=== PATIENT | female | born 1940 | race Two or more races ===

== ENCOUNTER 2018-01-13 13:15 | Emergency (ER) | payer OTHER ==
[~2018-01-13] VITALS: Ht 149.9 cm; Wt 59.0 kg
[~2018-01-13 13:15] MED LIST: AMOXICILLIN500 MG; CARAFATE SU1 G/10 ML PO; CIPRO500 MG PO; CLARITHROMYCIN500 MG; DIOVAN160 M1 PO; GEMFIBROZIL600 MG PO; GLIMEPIRIDE4 MG; GLIMEPIRIDE4 MG PO; HYZAAR 100-251 UDTAB; INTESTINEX1 CAP PO; JANUMET 50-1,1 UDTAB; METFORMIN HCL1000 MG PO; METFORMIN HCL500 MG PO; OMEPRAZOLE20 MG; PLAVIX75 MG PO; POLY119PG PO; SURFAK240 M1 PO; TRICOR145 MG PO; TYLENOL-CODEINE1 TAB PO; ZANTAC150 MG PO; ZOCOR40 MG PO
[2018-01-13] MEDS ORDERED: IRBESARTAN-HCT1 EAC1 (13:28)
[2018-01-13] MEDS ORDERED: LIPITOR20 MG (13:28)
[2018-01-13] MEDS ORDERED: FENOFIBRATE48 MG (13:28)
== END 2018-01-13 16:06 | disposition home or self-care (01) ==
LOC: ER 13:15
DX: S61.210A Laceration without foreign body of right index finger without damage to nail, initial encounter (principal); W54.0XXA Bitten by dog, initial encounter; Y93.89 Activity, other specified; Y92.89 Other specified places as the place of occurrence of the external cause; Y99.8 Other external cause status

== ENCOUNTER 2018-05-16 12:14 | Outpatient (CLI) | payer OTHER ==
[~2018-05-16 12:14] MED LIST changes: +FENOFIBRATE48 MG; +IRBESARTAN-HCT1 EAC1; +LEVALBUTER1.25 MG/3 IH; +LIPITOR20 MG; +MEDROLPACK PO; +TESSALON PERLE100 MG PO; +ZITHROMAX500 MG PO
== END 2018-05-16 12:24 | disposition home or self-care (01) ==
LOC: RAD 12:14
DX: J44.1 Chronic obstructive pulmonary disease with (acute) exacerbation (principal); R10.84 Generalized abdominal pain

== ENCOUNTER → 2018-09-10 11:42 | Outpatient (CLI) | payer OTHER | END | disposition home or self-care (01) | LOC: LAB 11:42 | DX: N39.0 Urinary tract infection, site not specified (principal); R82.79 Other abnormal findings on microbiological examination of urine ==

== ENCOUNTER 2018-09-25 08:03 | Outpatient (CLI) | payer OTHER | END 2018-09-25 08:25 | disposition home or self-care (01) | LOC: NUCLEAR 08:03 | DX: I20.1 Angina pectoris with documented spasm (principal); R07.89 Other chest pain | CPT/HCPCS: 78452; 93017; A9500; J0153 ==

== ENCOUNTER → 2019-04-03 | Outpatient (CLI) | payer OTHER | END | disposition home or self-care (01) | LOC: SONOGRAMA 11:59 | DX: R10.84 Generalized abdominal pain (principal); N18.3 Chronic kidney disease, stage 3 (moderate); R31.29 Other microscopic hematuria ==

== ENCOUNTER 2019-11-27 12:56 | Outpatient (CLI) | payer OTHER | END 2019-11-27 13:00 | disposition home or self-care (01) | LOC: SONOGRAMA 12:56 | DX: E04.1 Nontoxic single thyroid nodule (principal) ==

== ENCOUNTER 2020-08-31 08:53 | Outpatient (CLI) | payer OTHER | END 2020-08-31 09:01 | disposition home or self-care (01) | LOC: SONOGRAMA 08:53 | PROVIDERS: ATTEND Internal Medicine | DX: R10.84 Generalized abdominal pain (principal) ==

== ENCOUNTER 2021-04-06 09:39 | Outpatient (CLI) | payer OTHER | END 2021-04-06 09:49 | disposition home or self-care (01) | LOC: SONOGRAMA 09:39 | PROVIDERS: ATTEND Internal Medicine | DX: E03.8 Other specified hypothyroidism (principal); E04.1 Nontoxic single thyroid nodule ==

== ENCOUNTER 2021-11-28 19:51 | Emergency (ER) | payer OTHER ==
[~2021-11-28] VITALS: Ht 149.9 cm; Wt 59.0 kg
[2021-11-28] MEDS ORDERED: ATORVASTATIN CA40 MG PO (20:01)
[2021-11-28] MEDS ORDERED: SEMGLEE100 UNIT/1 (20:01)
[2021-11-28] MEDS ORDERED: FENOFIBRATE145 MG PO (20:02)
[2021-11-28] MEDS ORDERED: ADMELOG100 UNIT/1 (20:02)
[2021-11-28] MEDS ORDERED: CANDESARTAN CIL32 MG PO (20:02)
== END 2021-11-28 21:54 | disposition home or self-care (01) ==
LOC: ER 19:51
DX: N39.0 Urinary tract infection, site not specified (principal); R30.0 Dysuria; E11.65 Type 2 diabetes mellitus with hyperglycemia

== ENCOUNTER 2022-01-19 10:06 | Outpatient (CLI) | payer OTHER ==
[~2022-01-19 10:06] MED LIST changes: +ADMELOG100 UNIT/1; +ATORVASTATIN CA40 MG PO; +CANDESARTAN CIL32 MG PO; +FENOFIBRATE145 MG PO; +SEMGLEE100 UNIT/1
== END 2022-01-19 10:14 | disposition home or self-care (01) ==
LOC: RAD 10:06
PROVIDERS: ATTEND Internal Medicine
DX: M15.0 Primary generalized (osteo)arthritis (principal); M25.519 Pain in unspecified shoulder; M25.551 Pain in right hip

== ENCOUNTER → 2022-03-11 | Emergency (ER) | payer OTHER | END | disposition left against medical advice (07) | LOC: ER 16:25 | DX: Z53.21 Procedure and treatment not carried out due to patient leaving prior to being seen by health care provider (principal) ==

== ENCOUNTER 2022-03-31 07:35 | Outpatient (CLI) | payer OTHER | END 2022-03-31 07:38 | disposition home or self-care (01) | LOC: NUCLEAR 07:35 | PROVIDERS: ATTEND Internal Medicine | DX: K31.84 Gastroparesis (principal) | CPT/HCPCS: 78264; A9541 ==

== ENCOUNTER 2022-06-13 11:37 | Emergency (ER) | payer OTHER ==
[~2022-06-13] VITALS: Ht 137.2 cm; Wt 61.7 kg
[2022-06-13] MEDS ORDERED: LEVOTHYROXINE25 MC1 PO (12:18)
[2022-06-13] MEDS ORDERED: OMEPRAZOLE20 MG PO (12:18)
[2022-06-13] MEDS ORDERED: MOLNUPIRAVIR (200 MG PO (18:02)
[2022-06-13] MEDS ORDERED: TUSNEL LIQUID178 ML PO (18:02)
[2022-06-13] MEDS ORDERED: DOLOGEN CAPLET1 EACH PO (18:02)
== END 2022-06-13 18:23 | disposition home or self-care (01) ==
LOC: ER 11:37
DX: U07.1 COVID-19 (principal); Z88.6 Allergy status to analgesic agent; E11.9 Type 2 diabetes mellitus without complications; Z79.84 Long term (current) use of oral hypoglycemic drugs; I10 Essential (primary) hypertension

== ENCOUNTER 2023-03-20 10:29 | Outpatient (CLI) | payer OTHER ==
[~2023-03-20 10:29] MED LIST changes: +DOLOGEN CAPLET1 EACH PO; +LEVOTHYROXINE25 MC1 PO; +MOLNUPIRAVIR (200 MG PO; +OMEPRAZOLE20 MG PO; +TUSNEL LIQUID178 ML PO
== END 2023-03-20 10:34 | disposition home or self-care (01) ==
LOC: TOM 10:29
PROVIDERS: ATTEND Otolaryngology Otology & Neurotology
DX: H65.23 Chronic serous otitis media, bilateral (principal)

== ENCOUNTER 2023-04-06 09:38 | Outpatient (CLI) | payer OTHER | END 2023-04-06 09:42 | disposition home or self-care (01) | LOC: RAD 09:38 | PROVIDERS: ATTEND Internal Medicine | DX: J44.1 Chronic obstructive pulmonary disease with (acute) exacerbation (principal) ==

== ENCOUNTER 2023-04-06 09:51 | Outpatient (CLI) | payer OTHER | END 2023-04-06 09:53 | disposition home or self-care (01) | LOC: NUCLEAR 09:51 | PROVIDERS: ATTEND Internal Medicine | DX: I34.2 Nonrheumatic mitral (valve) stenosis (principal) ==

== ENCOUNTER → 2023-04-18 | Emergency (ER) | payer OTHER ==
[~2023-04-18] VITALS: Ht 152.4 cm; Wt 68.0 kg
== END | disposition left against medical advice (07) ==
LOC: ER 13:39
DX: Z53.21 Procedure and treatment not carried out due to patient leaving prior to being seen by health care provider (principal)

== ENCOUNTER → 2024-05-13 08:56 | Outpatient (CLI) | payer OTHER ==
[~2024-05-13 08:56] MED LIST changes: +COZAAR25 MG PO; +DOLOGESIC-DF 51 EACH PO; +LANTUS SOL100 UNIT/1 SQ
== END | disposition home or self-care (01) ==
LOC: NUCLEAR 08:56
PROVIDERS: ATTEND Internal Medicine
DX: I34.0 Nonrheumatic mitral (valve) insufficiency (principal)

== ENCOUNTER 2024-07-05 07:28 | Outpatient (CLI) | payer OTHER | END 2024-07-05 07:30 | disposition home or self-care (01) | LOC: NUCLEAR 07:28 | PROVIDERS: ATTEND Internal Medicine | DX: I20.9 Angina pectoris, unspecified (principal) | CPT/HCPCS: 78452; 93017; A9500 ==

== ENCOUNTER 2024-07-17 09:06 | Emergency (ER) | payer OTHER ==
[~2024-07-17] VITALS: Ht 149.9 cm; Wt 63.5 kg
[2024-07-17 10:16] LABS: HEMATOCRIT 30.9 % (36.0-45.00); HEMOGLOBIN 10.7 g/dL (12.0-15.00); MEAN CELL VOLUME 89.6 fL (80.00-100.00); MEAN CORPUSCULAR HGB CONC 34.5 g/dl (32.0-36.0); PLATELET COUNT 328 K/uL (150-450); RED BLOOD COUNT 3.44 M/uL (4.00-6.00); RED CELL DISTRIBUTION WIDTH 12.8 % (11.5-14.5)
[2024-07-17 10:44] LABS: ALBUMIN 3.7 gm/dL (3.4-5.0); BILIRUBIN TOTAL 0.27 mg/dL (0.3-1.2); CALCIUM 8.9 mg/dL (8.5-10.1); CREATININE SERUM 2.16 mg/dL (0.55-1.02); GFR 21.72; GLOBULINA 4.1 G/DL (2.4-3.5); POTASSIUM 4.9 mEq/L (3.5-5.1); TOTAL PROTEIN 7.8 gm/dL (6.4-8.2)
[2024-07-17 10:46] LABS: URINE APPEARANCE Turbid; URINE BILIRRUBIN Negative (NEGATIVE); URINE BLOOD Trace; URINE COLOR Yellow; URINE KETONE Negative (NEGATIVE); URINE LEUKOCYTE Large; URINE NITRATE Negative; URINE UROBILINOGEN 0.2 E.U./dl
[2024-07-17 10:50] LABS: URINE BACTERIA 399.4 uL (0.0-1933); URINE EPITHELIAL CELLS 20.5 uL (0.0-38.8)
[2024-07-17] MEDS ORDERED: 0.9 % SODIUM CHLORIDE 500 ML IV ONE (11:45)
[2024-07-17] MEDS ORDERED: INSULIN REGULAR, HUMAN 1,000 UNIT/10 ML UNITS SUBCUTANEO ONE (11:45)
[2024-07-17 12:01] LABS: URINE GLUCOSE 250 MG/DL (NEGATIVE)
[2024-07-17 12:02] LABS: URINE CAST 1.22 uL (0.0-1.40); URINE PROTEIN 100 (NEGATIVE); URINE RBC 0.7 uL (0.0-20.8)
[2024-07-17] MEDS ORDERED: CEPHALEXIN250 MG PO (13:25)
== END 2024-07-17 13:45 | disposition home or self-care (01) ==
LOC: ER 09:07
PROVIDERS: General Practice
DX: N39.0 Urinary tract infection, site not specified (principal); Z88.6 Allergy status to analgesic agent; M19.90 Unspecified osteoarthritis, unspecified site; I12.0 Hypertensive chronic kidney disease with stage 5 chronic kidney disease or end stage renal disease; E11.65 Type 2 diabetes mellitus with hyperglycemia; Z79.4 Long term (current) use of insulin; E11.22 Type 2 diabetes mellitus with diabetic chronic kidney disease; N18.6 End stage renal disease
CPT/HCPCS: 36415; 96365; 96372; 99282; J1815; J7030

== ENCOUNTER 2024-07-19 10:33 | Outpatient (CLI) | payer OTHER ==
[~2024-07-19 10:33] MED LIST changes: +CEPHALEXIN250 MG PO
== END 2024-07-19 16:30 | disposition home or self-care (01) ==
LOC: RAD 10:33
PROVIDERS: ATTEND Physical Medicine & Rehabilitation
DX: M54.17 Radiculopathy, lumbosacral region (principal)

== ENCOUNTER 2024-08-12 09:53 | Outpatient (CLI) | payer OTHER | END 2024-08-12 09:59 | disposition home or self-care (01) | LOC: SONOGRAMA 09:53 | PROVIDERS: ATTEND Specialist/Technologist, Other Nephrology | DX: R10.9 Unspecified abdominal pain (principal); N18.30 Chronic kidney disease, stage 3 unspecified; R31.9 Hematuria, unspecified ==

== ENCOUNTER → 2024-11-29 | Outpatient (CLI) | payer OTHER | END | disposition home or self-care (01) | LOC: SONOGRAMA 10:34 | PROVIDERS: ATTEND Internal Medicine | DX: M25.511 Pain in right shoulder (principal) ==

== ENCOUNTER 2024-12-03 13:07 | Outpatient (CLI) | payer OTHER | END 2024-12-03 13:08 | disposition home or self-care (01) | LOC: NUCLEAR 13:07 | PROVIDERS: ATTEND Internal Medicine | DX: M81.0 Age-related osteoporosis without current pathological fracture (principal) ==

== ENCOUNTER 2024-12-30 09:56 | Outpatient (CLI) | payer OTHER ==
[2024-12-30 11:47] LABS: ALBUMIN 3.6 gm/dL (3.4-5.0); BILIRUBIN TOTAL 0.27 mg/dL (0.3-1.2); CALCIUM 9.1 mg/dL (8.5-10.1); CREATININE SERUM 2.42 mg/dL (0.55-1.02); GFR 19.05; POTASSIUM 5.57 mEq/L (3.5-5.1); TOTAL PROTEIN 7.6 gm/dL (6.4-8.2)
[2024-12-31 10:05] LABS: C PEPTIDE 3.9 ng/mL (1.1-4.4)
[2025-01-01 18:05] LABS: GLUTAMIC ACID DECARBOXYLASE < 5.0 U/mL (0.0-5.0)
== END 2024-12-30 09:57 | disposition home or self-care (01) ==
LOC: LAB 09:56
PROVIDERS: ATTEND Internal Medicine Endocrinology, Diabetes & Metabolism
DX: E11.65 Type 2 diabetes mellitus with hyperglycemia (principal)

== ENCOUNTER 2024-12-30 10:24 | Outpatient (CLI) | payer OTHER | END 2024-12-30 10:35 | disposition home or self-care (01) | LOC: RAD 10:24 | PROVIDERS: ATTEND Anesthesiology | DX: M47.817 Spondylosis without myelopathy or radiculopathy, lumbosacral region (principal); M46.1 Sacroiliitis, not elsewhere classified; M54.50 Low back pain, unspecified; M16.11 Unilateral primary osteoarthritis, right hip; M16.12 Unilateral primary osteoarthritis, left hip; M25.551 Pain in right hip; M25.552 Pain in left hip ==

== ENCOUNTER 2025-04-23 09:47 | Outpatient (CLI) | payer OTHER | END 2025-04-23 09:48 | disposition home or self-care (01) | LOC: NUCLEAR 09:47 | PROVIDERS: ATTEND Internal Medicine Endocrinology, Diabetes & Metabolism | DX: I73.9 Peripheral vascular disease, unspecified (principal) ==